=== PATIENT | male | born 1950 | race Caucasian/White ===

== ENCOUNTER 2019-10-27 07:26 | Emergency (ER) | payer MEDICARE, SELFPAY ==
[2019-10-27] VITALS (14 sets, daily range): BP systolic 121–210; BP diastolic 48–159; PULSE 73–107; RESP 18–24; TEMP 36.4–37.4; O2SAT 96–100
--- NOTE | 2019-10-27 07:42 | ED.GENADUL_ITS ---
Discharge Plan Disposition Patient Disposition: AGAINST MEDICAL ADVICE Condition: Stable Discharge Details Chief Complaint: Laceration Clinical Impression: Alcohol withdrawal, Transaminitis, Guaiac positive stools, Gait instability Primary Care Provider: None,None ED Provider: Joya Farmer Home Meds and New Rx's Prescriptions: No Action No Known Home Meds RF: 0 Discharge Instructions Instructions: Alcohol Withdrawal (ED) Additional Instructions: You are leaving the hospital AGAINST MEDICAL ADVICE. We are concerned for alcohol withdrawal and there was blood noted in your stool. Establish a primary care doctor in your area to schedule a follow-up appointment for reevaluation. Return immediately to any emergency department for worsening or new concerning symptoms. 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 He is intoxicated this evening brought by state police to the local drunk tank, while there he fell hit his head because laceration. Uncertain of the timing of this. Patient states that he drinks a sixpack per week, and denies history of DTs. Tetanus status is unknown and will updated today. Exam demonstrates a 1 cm laceration to the left scalp, this was stapled with 2 mariah after being cleaned copiously. No other evidence of significant trauma. However exam does demonstrate an notably anxious tremulous patient who appears to be clinically withdrawing. Sewall score is 13. We will give Ativan fluids banana bag labs get a CT scan of the head neck, and reassess. Case will be signed out to my colleague Dr. Farmer for evaluation of labs and imaging report and final disposi tion. <Joya Farmer DO - Last Filed: 10/27/19 10:38> 0800 --please see Dr. Lazo's note for initial presentation and plan. Patient is a 69-year-old male with no known medical history presented from the halfway after he hit the top of his head on the bunk bed above him. He had a small laceration which was closed with mariah per Dr. Lazo. Patient was noted to be tachycardic and hypertensive on initial evaluation with concern for alcohol withdrawal. Patient denied daily regular alcohol use to Dr. Lazo and myself. Patient states he drinks approximately a sixpack weekly. Case endorsed to follow-up on labs and imaging with plan for likely admission for alcohol withdrawal. He was given a dose of Ativan as well as a banana bag. Upon my assessment, heart rate 80s and blood pressure 111/72. He denies any acute complaints. He is oriented x3. Labs and imaging reviewed. Patient has elevated liver enzymes likely consistent with chronic alcohol disease. Alcohol level 0. CT head and cervical spine negative. 0930 -- Patient ambulated to the bathroom but was quite unsteady on his feet. It was advised that he stay for admission for concern for alcohol withdrawal and unsteadiness but he is declining. He was noted to have stool all over his pants and legs and there was stool all over the bathroom. Stool guaiac positive for blood. Again discussed with patient that he should stay for admission for observation and further monitoring but he declines. The risks of and disability due to a serious pathology explained and patient understands. He demonstrates capacity make decisions. Medical Records Medical records reviewed: Yes I reviewed the patient's medical records. Lab Data Lab results reviewed: Yes I reviewed the patient's lab results. Labs: Laboratory Tests Range/Units 10/27/19 10/27/19 10/27/19 08:00 08:00 08:00 WBC (4.4-10.8) k/cumm 10.82 H RBC (4.50-6.00) m/cumm 4.73 Hgb (13.5-17.5) g/dL 13.9 Hct (40.0-50.0) % 39.7 L MCV (80-95) fL 83.9 MCH (27.0-33.0) pg 29.4 MCHC (32.0-36.0) g/dL 35.0 RDW (11.8-14.1) % 14.1 Plt Count (130-400) x1000/uL 176 MPV (8.0-11.0) fL 10.5 Immature Gran % 0.1 Neutrophils % 85.5 Lymphocytes % 5.2 Monocytes % 9.1 Eosinophils % 0.0 Basophils % 0.1 Absolute Neutrophils (1.2-6.7) k/cumm 9.25 H Absolute Lymphocytes (1.2-3.4) k/cumm 0.56 L Absolute Monocytes (0.11-0.7) k/cumm 0.98 H Absolute Eosinophils (0.0-0.7) k/cumm 0.00 Absolute Basophils (0.0-0.2) k/cumm 0.01 PT (9.3-11.0) sec INR (0.9-1.1) APTT (21.0-31.4) sec Sodium (136-145) mmol/L 140 Potassium (3.5-5.1) mmol/L 4.0 Chloride (98-107) mmol/L 98 Carbon Dioxide (21.0-32.0) mmol/L 24.0 Anion Gap (3-11) mmol/L 18.0 H BUN (7-18) mg/dL 18 Creatinine (0.70-1.30) mg/dL 0.78 Estimated GFR/1.73 m2 (mL/min/1.73m2) >= 60.00 Glucose (74-106) mg/dL 107 H Calcium (8.5-10.1) mg/dL 8.9 Total Bilirubin (0.2-1.0) mg/dL 2.8 H AST (15-37) U/L 351 H ALT (16-63) U/L 215 H Alkaline Phosphatase (46-116) U/L 78 Ammonia (11-32) umol/L 14 Total Protein (6.4-8.2) g/dL 6.6 Albumin (3.4-5.0) g/dL 3.8 Ethyl Alcohol (<3) mg/dL < 3.0 Range/Units 10/27/19 08:00 WBC (4.4-10.8) k/cumm RBC (4.50-6.00) m/cumm Hgb (13.5-17.5) g/dL Hct (40.0-50.0) % MCV (80-95) fL MCH (27.0-33.0) pg MCHC (32.0-36.0) g/dL RDW (11.8-14.1) % Plt Count (130-400) x1000/uL MPV (8.0-11.0) fL Immature Gran % Neutrophils % Lymphocytes % Monocytes % Eosinophils % Basophils % Absolute Neutrophils (1.2-6.7) k/cumm Absolute Lymphocytes (1.2-3.4) k/cumm Absolute Monocytes (0.11-0.7) k/cumm Absolute Eosinophils (0.0-0.7) k/cumm Absolute Basophils (0.0-0.2) k/cumm PT (9.3-11.0) sec 10.0 INR (0.9-1.1) 1.0 APTT (21.0-31.4) sec 27.0 Sodium (136-145) mmol/L Potassium (3.5-5.1) mmol/L Chloride (98-107) mmol/L Carbon Dioxide (21.0-32.0) mmol/L Anion Gap (3-11) mmol/L BUN (7-18) mg/dL Creatinine (0.70-1.30) mg/dL Estimated GFR/1.73 m2 (mL/min/1.73m2) Glucose (74-106) mg/dL Calcium (8.5-10.1) mg/dL Total Bilirubin (0.2-1.0) mg/dL AST (15-37) U/L ALT (16-63) U/L Alkaline Phosphatase (46-116) U/L Ammonia (11-32) umol/L Total Protein (6.4-8.2) g/dL Albumin (3.4-5.0) g/dL Ethyl Alcohol (<3) mg/dL HPI <Navid Lazo DO - Last Filed: 10/27/19 07:51> General Date/Time Provider Initiated Documentation: 10/27/19 07:40 . HPI Narrative: This is a 69-year-old male who is a poor historian who denies any past medical history who presents today for evaluation after a fall. Per state police he was intoxicated and from [place], he was brought to the local intoxication tach, he sobered up throughout the night, during the evening he fell off of his metal bunk and lacerated his scalp. Uncertain as to what time this was. Patient states that he drinks regularly, but he adamantly assures me that he does not drink much. He denies any history of DTs in the past. He is notably anxious currently, and states that he does feel quite anxious and jittery. Patient is uncertain of his tetanus status. He denies any other complaints. Of note he does have chronic blindness in his left eye. He denies any headache, neck pain, chest pain, shortness of breath, numbness tingling or weakness. Related Data Home Medications Medication Instructions Recorded Confirmed Unknown [No Known Home Meds] 10/27/19 10/27/19 Allergies Allergy/AdvReac Type Severity Reaction Status Date / Time No Known Allergies Allergy Unverified 10/27/19 07:40 General Stated Complaint: Laceration DORINA: 3 Review of Systems <Navid Lazo DO - Last Filed: 10/27/19 07:51> All systems reviewed & are unremarkable except as noted in HPI and below PFSH <Navid Montemayor CliftonDO - Last Filed: 10/27/19 07:51> Social History Drug use: Never Exam <Navid BarrosocerDO - Last Filed: 10/27/19 07:51> Narrative Exam Narrative: 1.Const: Well-nourished, Well-developed, appearing stated age 2.Eyes: Pupils equal and reactive bilaterally., no conjunctival injection, and symmetrical lids. Notable cataract opacifying the left pupil. Chronic blindness in left eye. 3.ENT: Atraumatic external nose and ears. Moist MM. Neck: Symmetric, trachea midline, No thyromegaly. There is no evidence of raccoon eyes, khan sign, CSF rhinorrhea, mastoid tenderness, cranial crepitus, hemotympanum, exophthalmos, or hyphema. Patient demonstrates intact dentition with no signs of tooth avulsion or fracture, no signs of jaw deformity, no evidence of a LeFort's fracture, with an intact palate, nose and orbital region. There is no evidence of a nasal septal hematoma. No proptosis. Jaw closes symmetrically. Airway is clear. 4.CVS: +S1/S2, No murmurs or gallops. Peripheral pulses 2+ and equal in all extremities. Brisk capillary refill in all extremities. 5.RESP: Unlabored respiratory effort. Clear to auscultation bilaterally. No wheezes rales or rhonchi 6.GI: Soft, Nontender/Nondistended, No hepatosplenomegaly. No guarding or rebound. 7.MSK: Normocephalic, Extremities w/o deformity or ttp No cyanosis or clubbing, Normal movement of all extremities. Small 1 cm laceration to the left scalp, no evidence of trauma to the bone, no evidence of deep structure involvement. No active bleeding. No midline cervical thoracic or lumbar spine tenderness. Aside for the scalp there is no other evidence of significant trauma. 8.Skin: Warm, Dry. No rashes or lesions. 1 cm linear laceration to the left upper scalp. No evidence of deep involvement. 9.Neuro: perfect binder feeder offbearer II-XII grossly intact. Sensation grossly intact, no focal neurologic deficits. 10.Psych: (AAO) x3. Notably anxious, fidgety, jittery. Course <Navid Lazo DO - Last Filed: 10/27/19 07:51> Vital Signs Vital signs: Vital Signs Temperature 36.4 C L 10/27/19 07:29 Pulse 107 H 10/27/19 07:29 Respiratory Rate 18 10/27/19 07:29 Blood Pressure 210/159 H 10/27/19 07:29 Pulse Oximetry 96 10/27/19 07:29 Temperature 36.4 C L 10/27/19 07:35 Temperature Source Temporal Artery Scan 10/27/19 07:35 Pulse 107 H 10/27/19 07:35 Respiratory Rate 18 10/27/19 07:35 Blood Pressure 210/159 H 10/27/19 07:35 Blood Pressure Position Sitting 10/27/19 07:35 Pulse Oximetry 96 10/27/19 07:35 Oxygen Delivery Method Room Air 10/27/19 07:35 Oxygen Flow Rate 0 10/27/19 07:35 Pain Level 0 10/27/19 07:35 Sign Out <Navid Lazo DO - Last Filed: 10/27/19 07:51> Sign Out Data: Sign Out Comment: Follow-up on CT scan, labs, and reevaluation after Ativan. Last updated by Navid Lazo DO at 10/27/19 07:56
--- NOTE | 2019-10-27 07:51 | DI.CT_ITS ---
EXAM: CT HEAD CERVICAL SPINE WO CLINICAL HISTORY: Fall, laceration to scalp, EtOH, TECHNIQUE: The exam was performed according to the usual protocol without contrast. COMPARISON: No exams were available for comparison FINDINGS: CT head: Ventricles and sulci are consistent with the patient's age. Areas of decreased attenuation are seen in the white matter consistent with small vessel ischemic disease. There is no intracranial hemorrha ge, midline shift or mass effect. The ventricles are intact. The basilar cisterns are patent. There is no evidence of a calvarial fracture. The visualized paranasal sinuses and mastoid air cells are well aerated. There is a skin laceration over the left frontal bone. CT cervical spine: There are no acute fractures or subluxations present. The prevertebral soft tissues are unremarkable . Degenerative changes are seen throughout the cervical spine. IMPRESSION: 1. No acute intracranial process. 2. No acute fracture or subluxation in the cervical spine.
[2019-10-27] MEDS: Normal Saline 1,000 ML 1000 ML IV (08:00)
[2019-10-27] MEDS: LORazepam 2 MG/ML VIAL 1 MG IVP (08:00)
--- NOTE | 2019-10-27 08:03 | DI.VRAD_ITS ---
PROCEDURE INFORMATION: Exam: CT Head Without Contrast Exam date and time: 10/27/2019 7:48 AM Age: 69 years old Clinical indication: Other: Fall, laceration to scalp, ETOH, TECHNIQUE: Imaging protocol: Computed tomography of the head without contrast. Radiation optimization: All CT scans at this facility use at least one of these dose optimization techniques: automated exposure control; mA and/or kV adjustment per patient size (includes targeted exams where dose is matched to clinical indication); or iterative reconstruction. COMPARISON: No relevant prior studies available. FINDINGS: Brain: Mild volume loss No hemorrhage. Mild white matter disease. No mass effect. Ventricles: Normal. No ventriculomegaly. Bones/joints: Unremarkable. No acute fracture. Sinuses: Visualized sinuses are unremarkable. No fluid levels. Mastoid air cells: Visualized mastoid air cells are well aerated. Soft tissues: Stapled left frontal scalp laceration IMPRESSION: No acute intracranial hemorrhage noted PROCEDURE INFORMATION: Exam: CT Cervical Spine Without Contrast Exam date and time: 10/27/2019 7:48 AM Age: 69 years old Clinical indication: Other: Fall, laceration to scalp, ETOH, TECHNIQUE: Imaging protocol: Computed tomography images of the cervical spine without contrast. COMPARISON: No relevant prior studies available. FINDINGS: Vertebrae: No acute fracture. Loss of cervical lordosis is presumably on a degenerative basis. Discs/Spinal canal/Neural foramina: Multilevel central canal and foraminal stenosis most pronounced at C5-C6 and C6-C7 Soft tissues: Unremarkable. Lungs: Emphysema and mild apical scarring noted IMPRESSION: No acute cervical fracture noted Dictated and Authenticated by: Pepito Ortega MD. Ordering:SHAUNA Shoemaker MD
[2019-10-27 08:16] LABS: Abs Immature Grans 0.01 k/cumm (0.0-0.09); Absolute Basophil Count 0.01 k/cumm (0.0-0.2); Absolute Lymphocyte Count 0.56 k/cumm (1.2-3.4); Absolute Monocyte Count 0.98 k/cumm (0.11-0.7); Absolute Neutrophil Count 9.25 k/cumm (1.2-6.7); Basophils % 0.1; HCT 39.7 % (40.0-50.0); HGB 13.9 g/dL (13.5-17.5); Immature Grans % 0.1; Lymphocytes % 5.2; Mean Corpuscular Hemoglobin 29.4 pg (27.0-33.0); Mean Corpuscular Volume 83.9 fL (80-95); Mean Platelet Volume 10.5 fL (8.0-11.0); Monocytes % 9.1; Neutrophils % 85.5; Platelet Count 176 x1000/uL (130-400); RBC 4.73 m/cumm (4.50-6.00); RBC Distribution Width 14.1 % (11.8-14.1); White Blood Cell Count 10.82 k/cumm (4.4-10.8)
[2019-10-27 08:24] LABS: ALT 215 U/L (16-63); AST 351 U/L (15-37); Albumin 3.8 g/dL (3.4-5.0); Alkaline Phosphatase 78 U/L (46-116); BUN 18 mg/dL (7-18); Bilirubin, Total 2.8 mg/dL (0.2-1.0); CREATININE 0.78 mg/dL (0.70-1.30); Calcium 8.9 mg/dL (8.5-10.1); Chloride 98 mmol/L (98-107); ETHANOL BLOOD < 3.0 mg/dL (<3); Glucose 107 mg/dL (74-106); Sodium 140 mmol/L (136-145); Total Protein 6.6 g/dL (6.4-8.2)
[2019-10-27 08:31] LABS: Ammonia 14 umol/L (11-32)
[2019-10-27] MEDS: MAGNESIUM SULFATE 8.12 MEQ, MULTIVITAMIN 10 ML, THIAMINE 100 MG, FOLIC ACID 1 MG in Nor... 168.867 MG IV (08:58)
== END 2019-10-27 10:44 | disposition left against medical advice (07) ==
PROVIDERS: Student in an Organized Health Care Education/Training Program; Emergency Provider Physician Assistant
DX: S01.01XA Laceration without foreign body of scalp, initial encounter (principal); W06.XXXA Fall from bed, initial encounter; R74.0 Nonspecific elevation of levels of transaminase and lactic acid dehydrogenase [LDH]; R19.5 Other fecal abnormalities; R26.81 Unsteadiness on feet; F10.230 Alcohol dependence with withdrawal, uncomplicated; Z53.21 Procedure and treatment not carried out due to patient leaving prior to being seen by health care provider
CPT/HCPCS: 12001; 36415; 80053; 90471; 96361; 96365; 96366; 96375; 99284; 70450; 72125; 80320; 82140; 85025; 85610; 85730; J2060